=== PATIENT | female | born 1980 | race Caucasian/White ===

== ENCOUNTER → 2016-11-11 | Outpatient (CLI) | payer OTHER | LOC: FIMAGING 12:48 | PROVIDERS: ATTEND Family Medicine | DX: M79.1 Myalgia (principal); K59.00 Constipation, unspecified ==

== ENCOUNTER → 2016-11-22 | Outpatient (CLI) | payer OTHER | LOC: FIMAGING 15:28 | PROVIDERS: ATTEND Family Medicine | DX: R52 Pain, unspecified (principal); M51.36 Other intervertebral disc degeneration, lumbar region; R93.5 Abnormal findings on diagnostic imaging of other abdominal regions, including retroperitoneum ==

== ENCOUNTER → 2017-05-17 | Outpatient (CLI) | payer OTHER | LOC: BMCIMAGING 13:08 | PROVIDERS: ATTEND Family Medicine | DX: Z86.718 Personal history of other venous thrombosis and embolism (principal); Z98.890 Other specified postprocedural states ==